=== PATIENT | male | born 1950 | race Caucasian/White ===

== ENCOUNTER 2017-02-01 02:28 | Emergency (ER) | payer OTHER ==
--- NOTE | 2017-02-01 03:04 | PDOC ---
History of Present Illness - General History Source: Patient Exam Limitations: No Limitations - History of Present Illness Initial Comments: 02/01/17 03:29 The patient is a 66 year old male with a significant PMH of kidney stones, osteoporosis, arthritis, chronic back pain, BPH and GERD who presents to the emergency department with left sided pain beginning at approximately 10pm today. The patient describes the pain as localized near the left ribs,which is aggravated by changing positions or leaning to the right. The patient believes that his left side pain is associated with an episode earlier today at noon, wherein he reports reaching into a deep freezer and feeling a muscle spasm on his left side. The patient took Meloxicam and 2 extra strength Tylenol with minimal relief. He reports his left sided pain is so severe that it prevented him from sleeping, prompting his visit. The patient denies any recent injuries or trauma. He denies any numbness, tingling, or weakness. The patient denies chest pain, shortness of breath, headache and dizziness. Denies fever, chills, nausea, vomit, diarrhea and constipation. Denies dysuria, frequency, urgency and hematuria. Allergies: NKDA Past surgical history: Ulcer removal. Angiogram. Social history: Everyday smoker. No reported alcohol or drug use. PCP: Dr. Hopper <Pavel Funez - Last Filed: 02/01/17 04:51> - General History Source: Patient <ScarletSaul - Last Filed: 02/05/17 20:03> - General Stated Complaint: SIDE PAIN Time Seen by Provider: 02/01/17 03:01 Past History <Pavel Funez - Last Filed: 02/01/17 04:51> - Past Medical History Anemia: No Cardiac Disorders: No CVA: No Diabetes: No GI Disorders: Yes (ULCERS) Disorders: No HTN: No Psychiatric Problems: Yes (depression) - Surgical History Abdominal Surgery: (ULCER) Appendectomy: Yes Cardiac Surgery: Yes (ANGIOGRAM) - Suicide/Smoking/Psychosocial Hx Smoking Status: No Smoking History: Current every day smoker Number of Cigarettes Smoked Daily: 20 Hx Alcohol Use: No Drug/Substance Use Hx: No Substance Use Type: None <Saul Valerio - Last Filed: 02/05/17 20:03> - Past Medical History Allergies/Adverse Reactions: Allergies Allergy/AdvReac Type Severity Reaction Status Date / Time No Known Drug Allergies Allergy Verified 01/29/15 14:14 clams Allergy Severe Vomiting Uncoded 01/29/15 14:14 Home Medications: Ambulatory Orders Clonazepam 1 tab PO TID 06/20/13 Pantoprazole Sodium 1 tab PO DAILY 06/20/13 Trazodone HCl [Desyrel -] 1 tab PO BID 06/20/13 Alendronate Sodium [Fosamax] 10 mg PO DAILY 10/07/13 Ranitidine [Zantac -] 150 mg PO DAILY 01/13/15 Tamsulosin HCl [Flomax] 0.4 mg PO DAILY 01/13/15 Acetaminophen [Tylenol] 325 mg PO Q6H #20 tablet 01/29/15 Ibuprofen [Motrin] 600 mg PO TID #30 tablet 02/01/17 Oxycodone HCl/Acetaminophen [Percocet 5-325 mg Tablet] 1 - 2 tab PO Q6H #20 tablet MDD 4 02/01/17 Review of Systems - Review of Systems Able to Perform ROS?: Yes Comments:: 02/01/17 03:29 CONSTITUTIONAL: Absent: fever, chills, diaphoresis, generalized weakness, malaise, loss of appetite HEENT: Absent: rhinorrhea, nasal congestion, throat pain, throat swelling, difficulty swallowing, mouth swelling, ear pain, eye pain, visual Changes CARDIOVASCULAR: Absent: chest pain, syncope, palpitations, irregular heart rate, lightheadedness , peripheral edema RESPIRATORY: Absent: cough, shortness of breath, dyspnea with exertion, orthopnea, wheezing, stridor, hemoptysis GASTROINTESTINAL: Absent: abdominal pain, abdominal distension, nausea, vomiting, diarrhea, constipation, melena, hematochezia GENITOURINARY: Absent: dysuria, frequency, urgency, hesitancy, hematuria, flank pain, genital pain MUSCULOSKELETAL: (+) Left sided pain near ribs. Absent: arthralgia, joint swelling SKIN: Absent: rash, itching, pallor HEMATOLOGIC/IMMUNOLOGIC: Absent: easy bleeding, easy bruising, lymphadenopathy, frequent infections ENDOCRINE: Absent: unexplained weight gain, unexplained weight loss, heat intolerance, cold intolerance NEUROLOGIC: Absent: headache, focal weakness or paresthesias, dizziness, unsteady gait, seizure, mental status changes, bladder or bowel incontinence PSYCHIATRIC: Absent: anxiety, depression, suicidal or homicidal ideation, hallucinations. <Pavel Funez - Last Filed: 02/01/17 04:51> *Physical Exam - Vital Signs Last Vital Signs Temp Pulse Resp BP Pulse Ox 97.9 F 73 18 121/67 98 02/01/17 03:07 02/01/17 03:07 02/01/17 03:07 02/01/17 03:07 02/01/17 03:07 - Physical Exam Comments: 02/01/17 03:29 GENERAL: Well developed, well nourished. Awake and alert. No acute distress. HEENT: Normocephalic, atraumatic. PERRLA, EOMI. No conjunctival pallor. Sclera are non- icteric. Moist mucous membranes. Oropharynx is clear. NECK: Supple. Full ROM. No JVD. Carotid pulses 2+ and symmetric, without bruits. No thyromegaly. No lymphadenopathy. CARDIOVASCULAR: Regular rate and rhythm. No murmurs, rubs, or gallops. Distal pulses are 2+ and symmetric. PULMONARY: No evidence of respiratory distress. Lungs clear to auscultation bilaterally. No wheezing, rales or rhonchi. ABDOMINAL: Soft. Non-tender. Non-distended. No rebound or guarding. No organomegaly. Normoactive bowel sounds. MUSCULOSKELETAL: (+) Tender to anterior lateral region of the left side ribcage (6-8) Normal range of motion at all joints. No bony deformities. No CVA tenderness. EXTREMITIES: No cyanosis. No clubbing. No edema. No calf tenderness. SKIN: Warm and dry. Normal capillary refill. No rashes. No jaundice. NEUROLOGICAL: Alert, awake, appropriate. Cranial nerves 2-12 intact. No deficits to light touch and temperature in face, upper extremities and lower extremities. No motor deficits in the in face, upper extremities and lower extremities. Normoreflexic in the upper and lower extremities. Normal speech. Toes are downgoing bilaterally. Gait is normal without ataxia. PSYCHIATRIC: Cooperative. Good eye contact. Appropriate mood and affect. <Pavel Funez - Last Filed: 02/01/17 04:51> Medical Decision Making - Medical Decision Making 02/01/17 05:28 Dr. Valerio: The scribe's documentation has been prepared under my direction and personally reviewed by me in its entirery. I confirm that the note above accurately reflects all work, treatment, procedures, and medical decision making performed by me. 02/05/17 20:02 CT scan of chest done. No acute pathology seen. Pt discharged. referred to internal medicine as needed <Saul Valerio - Last Filed: 02/05/17 20:03> *DC/Admit/Observation/Transfer - Attestations Scribe Attestion: 02/01/17 03:29 Documentation prepared by Pavel Funez, acting as director medical for Saul Valerio DO. <Pavel Funez - Last Filed: 02/01/17 04:51> - Discharge Dispostion Admit: No <Saul Valerio - Last Filed: 02/05/17 20:03> Diagnosis at time of Disposition: Rib pain on left side - Discharge Dispostion Disposition: HOME Condition at time of disposition: Stable - Prescriptions Prescriptions: Ibuprofen [Motrin] 600 mg PO TID #30 tablet Oxycodone HCl/Acetaminophen [Percocet 5-325 mg Tablet] 1 - 2 tab PO Q6H #20 tablet MDD 4 - Referrals Referrals: Mik Hopper MD [Primary Care Provider] - - Patient Instructions Printed Discharge Instructions: DI for Rib Contusion
[2017-02-01 03:10] VITALS: BP 121/67; PULSE 73; TEMP 97.9; BMI 18.8
[2017-02-01] MEDS ORDERED: KETOROLAC TROMETHAMINE 60 MG/2 ML VIAL IM ONE (03:25)
[2017-02-01] MEDS ORDERED: KETOROLAC TROMETHAMINE 60 MG/2 ML VIAL ONE (03:30)
== END 2017-02-01 05:32 | disposition home or self-care (01) ==
LOC: JER 02:28
PROC: 3E0233Z Introduction of Anti-inflammatory into Muscle, Percutaneous Approach (ICD-10-PCS; principal; 2017-02-01)
DX: R07.81 Pleurodynia (principal)
CPT/HCPCS: 71250-TC; 96372; 99281-25

== ENCOUNTER 2017-02-18 17:44 | Emergency (ER) | payer OTHER ==
--- NOTE | 2017-02-18 17:51 | PDOC ---
Rapid Medical Evaluation Chief Complaint: Pain Time Seen by Provider: 02/18/17 17:49 Medical Evaluation: Allergies Allergy/AdvReac Type Severity Reaction Status Date / Time No Known Drug Allergies Allergy Verified 02/18/17 17:45 clams Allergy Severe Vomiting Uncoded 02/18/17 17:45 02/18/17 17:49 I have performed a brief in-person evaluation of this patient. The Patient presents with a chief complaint of left rib pain x 2 days Patient seen one week ago for injury to ribs, diagnosed with no fracture. States lifted a package 2 days ago that exacerbated the pain in left rib area worse than before. Complaining of pain with deep breathing, movement and when area is touched. Denies shortness of breath Pertinent physical exam findings are: NAD unlabored breathing tenderness in left anterior and posterior trunk I have ordered the following: analgesia, xray ordered The patient will proceed to the ED for further evaluation.
[2017-02-18 17:52] VITALS: BP 148/85; PULSE 75; TEMP 98; BMI 19.8
--- NOTE | 2017-02-18 18:58 | PDOC ---
History of Present Illness - General Chief Complaint: Pain Stated Complaint: PAIN, ACUTE Time Seen by Provider: 02/18/17 17:49 History Source: Patient Exam Limitations: No Limitations - History of Present Illness Initial Comments: 02/18/17 19:37 Patient is a 66-year-old male with past medical history of osteoporosis with multiple fractures, who presents to the emergency department today complaining of left rib pain. Patient states he was helping his neighbor lift a box when he experienced a sudden pain on the left lateral side of his chest. He was seen last week for similar symptoms after he hit his ribs into a counter at a deli. He was diagnosed with a left non-displaced 6th rib fracture at that time. He was taking ibuprofen with little relief. He states it hurts to take a deep breath and hurts to move. Denies fevers, chills, nausea, cough, vomiting and diarrhea. Past History - Travel Traveled outside of the country in the last 30 days: No Close contact w/someone who was outside of country & ill: No - Past Medical History Allergies/Adverse Reactions: Allergies Allergy/AdvReac Type Severity Reaction Status Date / Time No Known Drug Allergies Allergy Verified 02/18/17 17:45 clams Allergy Severe Vomiting Uncoded 02/18/17 17:45 Home Medications: Ambulatory Orders Clonazepam 1 tab PO TID 06/20/13 Pantoprazole Sodium 1 tab PO DAILY 06/20/13 Trazodone HCl [Desyrel -] 1 tab PO BID 06/20/13 Alendronate Sodium [Fosamax] 10 mg PO DAILY 10/07/13 Ranitidine [Zantac -] 150 mg PO DAILY 01/13/15 Tamsulosin HCl [Flomax] 0.4 mg PO DAILY 01/13/15 Acetaminophen [Tylenol] 325 mg PO Q6H #20 tablet 01/29/15 Ibuprofen [Motrin] 600 mg PO TID #30 tablet 02/01/17 Oxycodone HCl/Acetaminophen [Percocet 5-325 mg Tablet] 1 - 2 tab PO Q6H #20 tablet MDD 4 02/01/17 Ibuprofen 800 mg PO TID #30 tablet 02/18/17 Oxycodone HCl/Acetaminophen [Endocet 5-325 Tablet] 1 each PO Q6H #12 tablet MDD 4 02/18/17 Spirometers and Accessories [Mistassist] 1 each MC Q2H #1 each 02/18/17 Anemia: No Cardiac Disorders: No CVA: No COPD: No Diabetes: No GI Disorders: Yes (ULCERS) Disorders: No HTN: No Psychiatric Problems: Yes (depression) Other medical history: op - Surgical History Abdominal Surgery: (ULCER) Appendectomy: Yes Cardiac Surgery: Yes (ANGIOGRAM) - Suicide/Smoking/Psychosocial Hx Smoking Status: No Smoking History: Current every day smoker Have you smoked in the past 12 months: Yes Number of Cigarettes Smoked Daily: 20 Information on smoking cessation initiated: Yes Hx Alcohol Use: No Drug/Substance Use Hx: No Substance Use Type: None Review of Systems - Review of Systems Able to Perform ROS?: Yes Comments:: 02/18/17 19:07 CONSTITUTIONAL: Absent: fever, chills, diaphoresis, generalized weakness, malaise, loss of appetite HEENT: Absent: rhinorrhea, nasal congestion, throat pain, throat swelling, difficulty swallowing, mouth swelling, ear pain, eye pain, visual Changes CARDIOVASCULAR: Present: L chest pain Absent: loss of consciousness, palpitations, irregular heart rate, peripheral edema RESPIRATORY: Absent: cough, shortness of breath, dyspnea with exertion, orthopnea, wheezing, stridor, hemoptysis GASTROINTESTINAL: Absent: abdominal pain, abdominal distension, nausea, vomiting, diarrhea, constipation, melena, hematochezia GENITOURINARY: Absent: dysuria, frequency, urgency, hesitancy, hematuria, flank pain, genital pain MUSCULOSKELETAL: Absent: myalgia, arthralgia, joint swelling SKIN: Absent: rash, itching, pallor HEMATOLOGIC/IMMUNOLOGIC: Absent: easy bleeding, easy bruising, lymphadenopathy, frequent infections ENDOCRINE: Absent: unexplained weight gain, unexplained weight loss, heat intolerance, cold intolerance NEUROLOGIC: Absent: headache, focal weakness or paresthesias, dizziness, unsteady gait, seizure, mental status changes, bladder or bowel incontinence PSYCHIATRIC: Absent: anxiety, depression, suicidal or homicidal ideation, hallucinations. 02/18/17 19:39 Is the patient limited Sami proficient: No *Physical Exam - Vital Signs Last Vital Signs Temp Pulse Resp BP Pulse Ox 98.0 F 75 18 148/85 100 02/18/17 17:48 02/18/17 17:48 02/18/17 17:48 02/18/17 17:48 02/18/17 17:48 - Physical Exam Comments: 02/18/17 19:07 GENERAL: Well developed, well nourished. Awake and alert. No acute distress. HEENT: Normocephalic, atraumatic. PERRLA, EOMI. No conjunctival pallor. Sclera are non- icteric. Moist mucous membranes. Oropharynx is clear. NECK: Supple. Full ROM. No JVD. Carotid pulses 2+ and symmetric, without bruits. No thyromegaly. No lymphadenopathy. CARDIOVASCULAR: TTP of the L ribs from 6th rib to 9th rib. Regular rate and rhythm. No murmurs, rubs, or gallops. Distal pulses are 2+ and symmetric. PULMONARY: No evidence of respiratory distress. Lungs clear to auscultation bilaterally. No wheezing, rales or rhonchi. ABDOMINAL: Soft. Non-tender. Non-distended. No rebound or guarding. No organomegaly. Normoactive bowel sounds. MUSCULOSKELETAL Normal range of motion at all joints. No bony deformities or tenderness. No CVA tenderness. EXTREMITIES: No cyanosis. No clubbing. No edema. No calf tenderness. SKIN: Warm and dry. Normal capillary refill. No rashes. No jaundice. NEUROLOGICAL: Alert, awake, appropriate. Cranial nerves 2-12 intact. No deficits to light touch and temperature in face, upper extremities and lower extremities. No motor deficits in the in face, upper extremities and lower extremities. Normoreflexic in the upper and lower extremities. Normal speech. Toes are down- going bilaterally. Gait is normal without ataxia. PSYCHIATRIC: Cooperative. Good eye contact. Appropriate mood and affect. Medical Decision Making - Medical Decision Making 02/18/17 19:39 Patient is a 66-year-old male past medical osteoporosis with multiple fractures , who presents to the emergency department today complaining of left rib pain. Given patient's history and diagnosis from last visit he most likely aggravated his previous rib fracture. However given to the degree of pain the patient is in we'll free order x-ray to rule out new fracture. 1.rib x-ray 2.pain control 3.reevaluate 02/18/17 20:44 EKG: Sinus bradycardia, rate 55bpm Non-specific t-wave flattening, normal intervals normal axis. No ST-T wave elevation Pt. feels better with oxycodone. X-ray: non-displaced fracture of the 9th rib. Will d.c home with pain control and incentive spirometer. Referral to ortho given *DC/Admit/Observation/Transfer Diagnosis at time of Disposition: Rib fractures Qualifiers: Encounter type: initial encounter Rib fracture type: multiple ribs Fracture type: closed Laterality: left Qualified Code(s): S22.42XA - Multiple fractures of ribs, left side, initial encounter for closed fracture - Discharge Dispostion Disposition: HOME Condition at time of disposition: Good Admit: No - Prescriptions Prescriptions: Ibuprofen 800 mg PO TID #30 tablet Oxycodone HCl/Acetaminophen [Endocet 5-325 Tablet] 1 each PO Q6H #12 tablet MDD 4 Spirometers and Accessories [Mistassist] 1 each MC Q2H #1 each - Referrals Referrals: Mik Hopper MD [Primary Care Provider] - David Xiao MD [Staff Physician] - - Patient Instructions Printed Discharge Instructions: DI for Rib Fracture Additional Instructions: You have a broken Left 9th and 6th rib. You were prescribed oxycodone. Take the medication as needed for breakthrough pain every [address] after taking this medication as it may make you sleepy. Take the ibuprofen every 800mg every 8 hours. Use the incentive spirometer every 2 hours to help with your breathing. Follow up with ortho as soon as possible. You may take robitussin for cough. Return to the ED if you have worsening pain, cough fevers, or any changes in your symptoms. - Post Discharge Activity
--- NOTE | 2017-02-19 13:50 | EKG ---
Test Reason : Blood Pressure : / mmHG Vent. Rate : 055 BPM Atrial Rate : 055 BPM P-R Int : 126 ms QRS Dur : 084 ms QT Int : 402 ms P-R-T Axes : 075 030 045 degrees QTc Int : 384 ms SINUS BRADYCARDIA BASELINE ARTIFACTS POSSIBLE LEFT ATRIAL ENLARGEMENT NONSPECIFIC T WAVE ABNORMALITY ABNORMAL ECG WHEN COMPARED WITH ECG OF 20-JUN-2013 11:03, NONSPECIFIC T WAVE ABNORMALITY NOW EVIDENT IN LATERAL LEADS REPEAT EKG IF CLINICALLY INDICATED Confirmed by ONEL ARROYO MD ([id number]) on 02/19/2017 1:50:25 PM Referred By: Confirmed By:ONEL ARROYO MD
== END 2017-02-18 21:00 | disposition home or self-care (01) ==
LOC: JERFT 17:44
DX: S22.42XA Multiple fractures of ribs, left side, initial encounter for closed fracture (principal); X50.0XXA Overexertion from strenuous movement or load, initial encounter; Y93.89 Activity, other specified; Y92.89 Other specified places as the place of occurrence of the external cause; Y99.8 Other external cause status; M81.0 Age-related osteoporosis without current pathological fracture
CPT/HCPCS: 71101-TC; 93005; 93010; 99281-25

== ENCOUNTER 2017-06-27 17:24 | Emergency (ER) | payer OTHER ==
[2017-06-27 17:30] VITALS: BP 133/68; PULSE 83; TEMP 98.1; BMI 18.2
--- NOTE | 2017-06-27 17:54 | PDOC ---
History of Present Illness - General History Source: Patient Exam Limitations: No Limitations - History of Present Illness Initial Comments: 06/27/17 18:24 The patient is a 66 year old male with a significant PMH of osteoporosis, depression, and anxiety who presents to the emergency department with dizziness that began approximately 2 weeks ago with associated weight loss and loss of appetite. The patient notes he was lying in bed when he experienced increased dizziness prompting him to come to the ER. The patient states he took care of his mother for the last 6 months of her life that was diagnosed with brain cancer. The patient reports he has been eating a slice of bread or muffin a day since his mother . The patient denies chest pain, shortness of breath, and headache. Denies fever, chills, nausea, vomit, diarrhea and constipation. Denies dysuria, frequency, urgency and hematuria. Allergies: Clams Past surgical history: None reported Social history: Smokes 1 PPD. No reported alcohol or drug use. PCP: Dr. Hopper ] <Kenia Nolan - Last Filed: 06/27/17 18:39> <Jenna Ramirez - Last Filed: 06/28/17 21:20> - General Chief Complaint: Lightheaded Stated Complaint: DIZZINESS Time Seen by Provider: 06/27/17 17:53 Past History <Kenia Nolan - Last Filed: 06/27/17 18:39> - Past Medical History Anemia: No Cardiac Disorders: No CVA: No COPD: No Diabetes: No GI Disorders: Yes (ULCERS) Disorders: No HTN: No Psychiatric Problems: Yes (depression) - Surgical History Abdominal Surgery: (ULCER) Appendectomy: Yes Cardiac Surgery: Yes (ANGIOGRAM) - Suicide/Smoking/Psychosocial Hx Smoking Status: No Smoking History: Current every day smoker Have you smoked in the past 12 months: Yes Number of Cigarettes Smoked Daily: 20 Information on smoking cessation initiated: No Hx Alcohol Use: No Drug/Substance Use Hx: No Substance Use Type: None <Jenna Ramirez - Last Filed: 06/28/17 21:20> - Past Medical History Allergies/Adverse Reactions: Allergies Allergy/AdvReac Type Severity Reaction Status Date / Time No Known Drug Allergies Allergy Verified 06/27/17 17:27 clams Allergy Severe Vomiting Uncoded 06/27/17 17:27 Home Medications: Ambulatory Orders Clonazepam 1 tab PO TID 06/20/13 Pantoprazole Sodium 1 tab PO DAILY 06/20/13 traZODone HCL [Desyrel -] 1 tab PO HS 06/20/13 Alendronate Sodium [Fosamax] 70 mg PO TU 10/07/13 Tamsulosin HCl [Flomax] 0.4 mg PO DAILY 01/13/15 Acetaminophen [Tylenol] 325 mg PO Q6H #20 tablet 01/29/15 Bupropion HCl [Wellbutrin Sr] 150 mg PO BID 06/27/17 Meloxicam [Mobic] 15 mg PO DAILY 06/27/17 Venlafaxine HCl [Effexor -] 75 mg PO DAILY 06/27/17 Review of Systems - Review of Systems Able to Perform ROS?: Yes Comments:: 06/27/17 18:39 GENERAL/CONSTITUTIONAL: No fever or chills. No weakness. HEAD, EYES, EARS, NOSE AND THROAT: No change in vision. No ear pain or discharge. No sore throat. CARDIOVASCULAR: No chest pain or shortness of breath. RESPIRATORY: No cough, wheezing, or hemoptysis. GASTROINTESTINAL: (+) Lack of appetite. No nausea, vomiting, diarrhea or constipation. GENITOURINARY: No dysuria, frequency, or change in urination. MUSCULOSKELETAL: No joint or muscle swelling or pain. No neck or back pain. SKIN: No rash NEUROLOGIC: (+) Dizziness. No headache, loss of consciousness, or change in strength/sensation. ENDOCRINE: (+) Weight loss. No increased thirst. HEMATOLOGIC/LYMPHATIC: No anemia, easy bleeding, or history of blood clots. ALLERGIC/IMMUNOLOGIC: No hives or skin allergy. <Kenia Nolan - Last Filed: 06/27/17 18:39> *Physical Exam - Vital Signs Last Vital Signs Temp Pulse Resp BP Pulse Ox 98.1 F 83 15 133/68 99 06/27/17 17:27 06/27/17 17:27 06/27/17 17:27 06/27/17 17:27 06/27/17 17:27 <Kenia Nolan - Last Filed: 06/27/17 18:39> - Vital Signs Last Vital Signs Temp Pulse Resp BP Pulse Ox 98.1 F 83 15 133/68 99 06/27/17 17:27 06/27/17 17:27 06/27/17 17:27 06/27/17 17:27 06/27/17 17:27 <Jenna Ramirez - Last Filed: 06/28/17 21:20> ED Treatment Course - LABORATORY CBC & Chemistry Diagram: 06/27/17 18:52 06/27/17 18:52 <Jenna Ramirez - Last Filed: 06/28/17 21:20> *DC/Admit/Observation/Transfer - Attestations Scribe Attestion: 06/27/17 18:40 Documentation prepared by Kenia Nolan, acting as medical assistant secretary for Jenna Ramirez MD. <Kenia Nolan - Last Filed: 06/27/17 18:39> <Jenna Ramirez - Last Filed: 06/28/17 21:20> Diagnosis at time of Disposition: Decrease in appetite - Discharge Dispostion Disposition: HOME Condition at time of disposition: Stable - Referrals Referrals: Mik Hopper MD [Primary Care Provider] - - Patient Instructions Printed Discharge Instructions: DI for Poor Appetite Additional Instructions: Please follow up with your primary care doctor to discuss how to increase your appetite - Post Discharge Activity
[2017-06-27 19:06] LABS: BASO % 0.4 % (0-2.0); EOS % 1.1 % (0-4.5); HEMATOCRIT 41.3 % (35.4-49); LYMPH % 13.9 % (8-40); MCH 32.5 pg (25.7-33.7); MEAN CELL VOLUME 95.6 fl (80-96); MEAN PLT VOLUME 8.6 fl (7.5-11.1); MONO % 8.2 % (3.8-10.2); NEUT % 76.4 % (42.8-82.8); PLATELET COUNT 198 K/MM3 (134-434); RBC 4.32 M/mm3 (4.00-5.60); RDW 13.3 % (11.9-15.9); WHITE BLOOD COUNT 10.3 K/mm3 (4.0-10.0)
[2017-06-27 19:37] LABS: ALBUMIN 3.5 g/dl (3.4-5.0); ANION GAP 1 (8-16); BILIRUBIN,TOTAL 0.2 mg/dL (0.2-1.0); BLOOD UREA NITROGEN 16 mg/dL (7-18); CALCIUM 9.1 mg/dL (8.5-10.1); CHLORIDE 107 mmol/L (98-107); CO2 35 mmol/L (21-32); CREATININE 1.3 mg/dL (0.7-1.3); GLUCOSE,RANDOM 95 mg/dL (74-106); POTASSIUM 4.2 mmol/L (3.5-5.1); SGOT/AST 10 U/L (15-37); SGPT/ALT 13 U/L (12-78); SODIUM 143 mmol/L (136-145)
[2017-06-27 19:38] LABS: ALK PHOS 88 U/L (45-117); TOT PROT 6.7 g/dl (6.4-8.2)
--- NOTE | 2017-06-27 20:24 | PDOC ---
*Physical Exam - Vital Signs Last Vital Signs Temp Pulse Resp BP Pulse Ox 98.1 F 83 15 133/68 99 06/27/17 17:27 06/27/17 17:27 06/27/17 17:27 06/27/17 17:27 06/27/17 17:27 ED Treatment Course - LABORATORY CBC & Chemistry Diagram: 06/27/17 18:52 06/27/17 18:52 - ADDITIONAL ORDERS Additional order review: Laboratory Results 06/27/17 18:52 Sodium 143 Potassium 4.2 Chloride 107 Carbon Dioxide 35 H Anion Gap 1 L BUN 16 D Creatinine 1.3 D Creat Clearance w eGFR 55.23 Random Glucose 95 D Calcium 9.1 Total Bilirubin 0.2 D AST 10 L D ALT 13 D Alkaline Phosphatase 88 D Total Protein 6.7 Albumin 3.5 06/27/17 18:52 RBC 4.32 MCV 95.6 MCHC 34.0 RDW 13.3 MPV 8.6 Neutrophils % 76.4 D Lymphocytes % 13.9 D Monocytes % 8.2 Eosinophils % 1.1 Basophils % 0.4 Medical Decision Making - Medical Decision Making 06/27/17 20:[address] scan of head are all stable. Pt will be discharged to follow up with his pcp for further discussion about how to improve his appetite *DC/Admit/Observation/Transfer Diagnosis at time of Disposition: Decrease in appetite - Discharge Dispostion Disposition: HOME Condition at time of disposition: Stable Admit: No - Referrals Referrals: Mik Hopper MD [Primary Care Provider] - - Patient Instructions Printed Discharge Instructions: DI for Poor Appetite Additional Instructions: Please follow up with your primary care doctor to discuss how to increase your appetite - Post Discharge Activity
== END 2017-06-27 20:24 | disposition home or self-care (01) ==
LOC: JER 17:24
DX: F50.89 Other specified eating disorder (principal); F32.9 Major depressive disorder, single episode, unspecified; F41.9 Anxiety disorder, unspecified; M19.90 Unspecified osteoarthritis, unspecified site; Z98.61 Coronary angioplasty status
CPT/HCPCS: 36415; 70450-TC; 80053; 85025; 99282-25

== ENCOUNTER 2017-09-03 16:59 | Emergency (ER) | payer OTHER ==
[2017-09-03 17:22] VITALS: BP 146/76; PULSE 100; TEMP 98.3; BMI 18.8
--- NOTE | 2017-09-03 17:23 | PDOC ---
Rapid Medical Evaluation Chief Complaint: Pain Time Seen by Provider: 09/03/17 17:19 Medical Evaluation: Allergies Allergy/AdvReac Type Severity Reaction Status Date / Time No Known Drug Allergies Allergy Verified 09/03/17 17:18 clams Allergy Severe Vomiting Uncoded 09/03/17 17:18 09/03/17 17:20 Pt. presents to the ED c/o dizziness for two months, worsening over the last week. Worse when moving side. Exam: No gross neuro deficits, ambulatory Orders: CBC, CMP, UA, head CT Pt. to proceed to main ED for further evaluation
[2017-09-03 20:11] LABS: BASO % 0.8 % (0-2.0); EOS % 0.4 % (0-4.5); HEMATOCRIT 43.8 % (35.4-49); HEMOGLOBIN 14.5 GM/dL (11.7-16.9); LYMPH % 19.3 % (8-40); MCH 31.1 pg (25.7-33.7); MCHC 33.1 g/dl (32.0-35.9); MEAN CELL VOLUME 93.9 fl (80-96); MEAN PLT VOLUME 8.3 fl (7.5-11.1); NEUT % 70.5 % (42.8-82.8); PLATELET COUNT 187 K/MM3 (134-434); RBC 4.66 M/mm3 (4.00-5.60); RDW 13.1 % (11.9-15.9); WHITE BLOOD COUNT 7.3 K/mm3 (4.0-10.0)
[2017-09-03 20:28] LABS: URINE APPEARANCE CLEAR; URINE BILIRUBIN NEGATIVE (<2.0 mg/dL); URINE COLOR YELLOW; URINE GLUCOSE (UA) NEGATIVE (NEGATIVE); URINE KETONE TRACE (NEGATIVE); URINE LEUK ESTERASE TRACE (NEGATIVE); URINE NITRITE NEGATIVE (NEGATIVE); URINE PROTEIN NEGATIVE (NEGATIVE)
[2017-09-03 20:31] LABS: URINE MUCUS RARE
[2017-09-03 20:49] LABS: ALBUMIN 3.8 g/dl (3.4-5.0); ANION GAP 5 (8-16); BILIRUBIN,TOTAL 0.7 mg/dL (0.2-1.0); BLOOD UREA NITROGEN 17 mg/dL (7-18); CALCIUM 8.6 mg/dL (8.5-10.1); CHLORIDE 108 mmol/L (98-107); CO2 27 mmol/L (21-32); CREATININE 1.2 mg/dL (0.7-1.3); GLUCOSE,RANDOM 85 mg/dL (74-106); POTASSIUM 3.8 mmol/L (3.5-5.1); SGOT/AST 16 U/L (15-37); SODIUM 140 mmol/L (136-145); TOT PROT 7.2 g/dl (6.4-8.2)
[2017-09-03 20:54] LABS: ALK PHOS 49 U/L (45-117); SGPT/ALT 15 U/L (12-78)
--- NOTE | 2017-09-03 22:58 | PDOC ---
History of Present Illness <TroyDorothy Lori - Last Filed: 09/03/17 23:20> - General History Source: Patient Exam Limitations: No Limitations - History of Present Illness Initial Comments: 09/03/17 23:24 The patient is a 67 year old male with past medical history of osteoporosis, depression and GERD who presents to the ED with multiple complaints. He states for the past two months he has been experiencing lightheadedness, decreased appetite, and weight loss. He states the lightheadedness is worse when he closes his eyes. He denies any associated focal neurological deficits, visual changes, room spinning dizziness, chest pain, or palpitations. He denies any headache. Denies any recent illness, fevers or chills. PCP: Dr. Hopper <Sujey Connors - Last Filed: 09/03/17 23:57> - General Chief Complaint: Pain Stated Complaint: FATIGUE Time Seen by Provider: 09/03/17 17:19 Past History - Past Medical History Anemia: No Cardiac Disorders: No CVA: No COPD: No DVT: No Diabetes: No GI Disorders: Yes (ULCERS) Disorders: No HTN: No Psychiatric Problems: Yes (depression) Other medical history: OP,BPH - Surgical History Abdominal Surgery: (ULCER) Appendectomy: Yes Cardiac Surgery: Yes (ANGIOGRAM) - Suicide/Smoking/Psychosocial Hx Smoking Status: No Smoking History: Current every day smoker Have you smoked in the past 12 months: Yes Number of Cigarettes Smoked Daily: 20 Information on smoking cessation initiated: Yes 'Breaking Loose' booklet given: 09/03/17 Hx Alcohol Use: No Drug/Substance Use Hx: No Substance Use Type: None <Dorothy Simmons - Last Filed: 09/03/17 23:20> <Sujey Connors - Last Filed: 09/03/17 23:57> - Past Medical History Allergies/Adverse Reactions: Allergies Allergy/AdvReac Type Severity Reaction Status Date / Time No Known Drug Allergies Allergy Verified 09/03/17 17:18 clams Allergy Severe Vomiting Uncoded 09/03/17 17:18 Home Medications: Ambulatory Orders Clonazepam 1 tab PO TID 06/20/13 Pantoprazole Sodium 1 tab PO DAILY 06/20/13 traZODone HCL [Desyrel -] 1 tab PO HS 06/20/13 Alendronate Sodium [Fosamax] 70 mg PO TU 10/07/13 Tamsulosin HCl [Flomax] 0.4 mg PO DAILY 01/13/15 Acetaminophen [Tylenol] 325 mg PO Q6H #20 tablet 01/29/15 Bupropion HCl [Wellbutrin Sr] 150 mg PO BID 06/27/17 Meloxicam [Mobic] 15 mg PO DAILY 06/27/17 Venlafaxine HCl [Effexor -] 75 mg PO DAILY 06/27/17 Review of Systems - Review of Systems Able to Perform ROS?: Yes Comments:: 09/03/17 23:28 CONSTITUTIONAL:(+) loss of appetite, weight loss Absent: fever, chills, diaphoresis, generalized weakness, malaise HEENT: Absent: rhinorrhea, nasal congestion, throat pain, throat swelling, difficulty swallowing, mouth swelling, ear pain, eye pain, visual Changes CARDIOVASCULAR: (+) lightheadedness Absent: chest pain, syncope, palpitations, irregular heart rate, peripheral edema RESPIRATORY: Absent: cough, shortness of breath, dyspnea with exertion, orthopnea, wheezing, stridor, hemoptysis GASTROINTESTINAL: Absent: abdominal pain, abdominal distension, nausea, vomiting, diarrhea, constipation, melena, hematochezia GENITOURINARY: Absent: dysuria, frequency, urgency, hesitancy, hematuria, flank pain, genital pain MUSCULOSKELETAL: Absent: myalgia, arthralgia, joint swelling SKIN: Absent: rash, itching, pallor HEMATOLOGIC/IMMUNOLOGIC: Absent: easy bleeding, easy bruising, lymphadenopathy, frequent infections ENDOCRINE: Absent: unexplained weight gain, heat intolerance, cold intolerance NEUROLOGIC: Absent: headache, focal weakness or paresthesias, dizziness, unsteady gait, seizure, mental status changes, bladder or bowel incontinence PSYCHIATRIC: Absent: anxiety, depression, suicidal or homicidal ideation, hallucinations. All Other Systems: Reviewed and Negative <Sujey Connors - Last Filed: 09/03/17 23:57> *Physical Exam - Vital Signs Last Vital Signs Temp Pulse Resp BP Pulse Ox 98.3 F 100 H 20 146/76 100 09/03/17 17:18 09/03/17 17:18 09/03/17 17:18 09/03/17 17:18 09/03/17 17:18 <Dorothy Simmons - Last Filed: 09/03/17 23:20> - Vital Signs Last Vital Signs Temp Pulse Resp BP Pulse Ox 98.3 F 100 H 20 146/76 100 09/03/17 17:18 09/03/17 17:18 09/03/17 17:18 09/03/17 17:18 09/03/17 17:18 - Physical Exam Comments: 09/03/17 23:31 GENERAL: Thin, chachectic. Awake and alert. No acute distress. HEENT: Normocephalic, atraumatic. PERRLA, EOMI. No conjunctival pallor. Sclera are non- icteric. Moist mucous membranes. Oropharynx is clear. NECK: Supple. Full ROM. No JVD. Carotid pulses 2+ and symmetric, without bruits. No thyromegaly. No lymphadenopathy. CARDIOVASCULAR: Regular rate and rhythm. No murmurs, rubs, or gallops. Distal pulses are 2+ and symmetric. PULMONARY: No evidence of respiratory distress. Lungs clear to auscultation bilaterally. No wheezing, rales or rhonchi. ABDOMINAL: Soft. Non-tender. Non-distended. No rebound or guarding. No organomegaly. Normoactive bowel sounds. MUSCULOSKELETAL Normal range of motion at all joints. No bony deformities or tenderness. No CVA tenderness. EXTREMITIES: No cyanosis. No clubbing. No edema. No calf tenderness. SKIN: Warm and dry. Normal capillary refill. No rashes. No jaundice. NEUROLOGICAL: Alert, awake, appropriate. Cranial nerves 2-12 intact. No deficits to light touch and temperature in face, upper extremities and lower extremities. No motor deficits in the in face, upper extremities and lower extremities. Normoreflexic in the upper and lower extremities. Normal speech. Toes are down-going bilaterally. Gait is normal without ataxia. PSYCHIATRIC: Cooperative. Good eye contact. Appropriate mood and affect. <Sujey Connors - Last Filed: 09/03/17 23:57> ED Treatment Course - LABORATORY CBC & Chemistry Diagram: 09/03/17 17:26 09/03/17 17:26 - ADDITIONAL ORDERS Additional order review: Laboratory Results 09/03/17 09/03/17 20:05 17:26 Sodium 140 Potassium 3.8 Chloride 108 H Carbon Dioxide 27 D Anion Gap 5 L BUN 17 Creatinine 1.2 Creat Clearance w eGFR > 60 Random Glucose 85 Calcium 8.6 Total Bilirubin 0.7 D AST 16 D ALT 15 Alkaline Phosphatase 49 D Total Protein 7.2 Albumin 3.8 Urine Color Yellow Urine Appearance Clear Urine pH 6.0 Ur Specific [place] 1.019 Urine Protein Negative Urine Glucose (UA) Negative Urine Ketones Trace H Urine Blood Negative Urine Nitrite Negative Urine Bilirubin Negative Urine Urobilinogen 2.0 Ur Leukocyte Esterase Trace Urine WBC (Auto) 7 Urine RBC (Auto) 2 Urine Mucus Rare 09/03/17 17:26 RBC 4.66 MCV 93.9 MCHC 33.1 RDW 13.1 MPV 8.3 Neutrophils % 70.5 Lymphocytes % 19.3 D Monocytes % 9.0 Eosinophils % 0.4 Basophils % 0.8 <Dorothy Simmons - Last Filed: 09/03/17 23:20> - LABORATORY CBC & Chemistry Diagram: 09/03/17 17:26 09/03/17 17:26 - ADDITIONAL ORDERS Additional order review: Laboratory Results 09/03/17 09/03/17 20:05 17:26 Sodium 140 Potassium 3.8 Chloride 108 H Carbon Dioxide 27 D Anion Gap 5 L BUN 17 Creatinine 1.2 Creat Clearance w eGFR > 60 Random Glucose 85 Calcium 8.6 Total Bilirubin 0.7 D AST 16 D ALT 15 Alkaline Phosphatase 49 D Total Protein 7.2 Albumin 3.8 Urine Color Yellow Urine Appearance Clear Urine pH 6.0 Ur Specific [place] 1.019 Urine Protein Negative Urine Glucose (UA) Negative Urine Ketones Trace H Urine Blood Negative Urine Nitrite Negative Urine Bilirubin Negative Urine Urobilinogen 2.0 Ur Leukocyte Esterase Trace Urine WBC (Auto) 7 Urine RBC (Auto) 2 Urine Mucus Rare 09/03/17 17:26 RBC 4.66 MCV 93.9 MCHC 33.1 RDW 13.1 MPV 8.3 Neutrophils % 70.5 Lymphocytes % 19.3 D Monocytes % 9.0 Eosinophils % 0.4 Basophils % 0.8 - RADIOLOGY Radiograph Interpretation: 09/03/17 23:[address] as reviewed by Dr. Franco reports no interval change from prior exam <Sujey Connors - Last Filed: 09/03/17 23:57> *DC/Admit/Observation/Transfer <Dorothy Simmons - Last Filed: 09/03/17 23:20> - Attestations Scribe Attestion: 09/03/17 23:31 Documentation prepared by Sujey Connors, acting as emergency medical dispatcher for Dorothy Simmons MD. <Sujey Connors - Last Filed: 09/03/17 23:57> Diagnosis at time of Disposition: Decrease in appetite, Dizziness - Discharge Dispostion Condition at time of disposition: Stable - Referrals Referrals: Mik Hopper MD [Staff Physician] - Thierry Negron MD [Staff Physician] - - Patient Instructions Printed Discharge Instructions: DI for Dizziness-Nonvertigo Additional Instructions: IT IS IMPORTANT FOR YOU TO SEE YOUR DOCTOR FOR YOUR COMPLAINTS THE CT SCAN OF YOUR BRAIN DID NOT SHOW ANY ACUTE PROBLEMS PLEASE FOLLOWUP WITH A NEUROLOGIST
== END 2017-09-04 00:04 | disposition home or self-care (01) ==
LOC: JER 16:59
DX: R42 Dizziness and giddiness (principal); R63.4 Abnormal weight loss; Z68.1 Body mass index [BMI] 19.9 or less, adult; K21.9 Gastro-esophageal reflux disease without esophagitis; F32.9 Major depressive disorder, single episode, unspecified; F17.210 Nicotine dependence, cigarettes, uncomplicated; M81.8 Other osteoporosis without current pathological fracture
CPT/HCPCS: 36415; 70450-TC; 80053; 81003; 81015; 85025; 99281-25

== ENCOUNTER 2017-09-05 14:29 | Emergency (ER) | payer OTHER ==
--- NOTE | 2017-09-05 14:35 | PDOC ---
Rapid Medical Evaluation Time Seen by Provider: 09/05/17 14:32 Medical Evaluation: Allergies Allergy/AdvReac Type Severity Reaction Status Date / Time No Known Drug Allergies Allergy Verified 09/03/17 17:18 clams Allergy Severe Vomiting Uncoded 09/03/17 17:18 I have performed a brief in-person evaluation of this patient. The patient presents with a chief complaint of: nausea, vomiting and weakness x 5 days. Was here saturday for same Pertinent physical exam findings: nothing I have ordered the following: cbc, cmp, UA The patient will proceed to the ED for further evaluation. Discharge Disposition - Diagnosis Vomiting - Referrals - Patient Instructions - Post Discharge Activity
[2017-09-05 14:36] VITALS: BP 158/88; PULSE 98; TEMP 98.7; BMI 18.8
--- NOTE | 2017-09-05 15:20 | PDOC ---
Attending Attestation - Resident Resident Name: Kiran Garcia - HPI HPI: 09/05/17 16:36 Pt presents to the ED complaining of an 8 day history of nausea, vomiting and lightheadness. States that he was seen in the ED recently for the same complaint and was sent home when labs and CT were negative. Denies abdominal pain. States that he has been unable to eat secondary to severely decreased appetite and nausea. Also stating that his son is sick with the same symptoms. Patient states that he is unable to walk, although he has been observed by me to be ambulatory with a steady gait. 09/05/17 16:43 - Physicial Exam PE: 09/05/17 16:42 agree with resident exam. Patient is alert and in no acute distress. Ambulatory in the ED with a steady gait. Abdomen is mildly tender to to deep palpation diffusely. 09/05/17 16:43 - Medical Decision Making 09/05/17 16:44 Pt presents to the ED complaining of lightheadness, nausea and vomiting. REcent negative work up. WIll check labs to rule out electrolyte disturbance and give IV hydration. Will treat nausea with IV zofran. Will likely discharge home if labs are negative.
[2017-09-05 15:30] LABS: BASO % 0.4 % (0-2.0); EOS % 0.2 % (0-4.5); HEMATOCRIT 44.4 % (35.4-49); HEMOGLOBIN 14.8 GM/dL (11.7-16.9); LYMPH % 14.8 % (8-40); MCH 30.9 pg (25.7-33.7); MCHC 33.3 g/dl (32.0-35.9); MEAN CELL VOLUME 92.9 fl (80-96); MEAN PLT VOLUME 8.7 fl (7.5-11.1); MONO % 8.1 % (3.8-10.2); NEUT % 76.5 % (42.8-82.8); PLATELET COUNT 168 K/MM3 (134-434); RBC 4.78 M/mm3 (4.00-5.60)
--- NOTE | 2017-09-05 15:49 | PDOC ---
History of Present Illness - General Chief Complaint: Nausea/Vomiting Stated Complaint: WEAKNESS Time Seen by Provider: 09/05/17 14:32 - History of Present Illness Initial Comments: 09/05/17 16:22 Mr. Mahoney is a 67 yo male w/ pmh of osteoporosis, depression, and GERD who presents for evaluation of 4-5 day history of nausea with anorexia and relative weakness. He reports his son has also had similar symptoms. He ate some food last night and was able to keep it down however he had some dry gagging. The patient denies chest pain, shortness of breath, headache and dizziness. Denies fever, chills, nausea, vomit, diarrhea and constipation. Denies dysuria, frequency, urgency and hematuria. Allergies: NKDA Past History - Past Medical History Allergies/Adverse Reactions: Allergies Allergy/AdvReac Type Severity Reaction Status Date / Time No Known Drug Allergies Allergy Verified 09/05/17 14:32 clams Allergy Severe Vomiting Uncoded 09/05/17 14:32 Home Medications: Ambulatory Orders Clonazepam 1 tab PO TID 06/20/13 Pantoprazole Sodium 1 tab PO DAILY 06/20/13 traZODone HCL [Desyrel -] 1 tab PO HS 06/20/13 Alendronate Sodium [Fosamax] 70 mg PO TU 10/07/13 Tamsulosin HCl [Flomax] 0.4 mg PO DAILY 01/13/15 Acetaminophen [Tylenol] 325 mg PO Q6H #20 tablet 01/29/15 Bupropion HCl [Wellbutrin Sr] 150 mg PO BID 06/27/17 Meloxicam [Mobic] 15 mg PO DAILY 06/27/17 Venlafaxine HCl [Effexor -] 75 mg PO DAILY 06/27/17 Anemia: No Cardiac Disorders: No CVA: No COPD: No DVT: No Diabetes: No GI Disorders: Yes (ULCERS) Disorders: No HTN: No Psychiatric Problems: Yes (depression) Other medical history: OP - Surgical History Abdominal Surgery: (ULCER) Appendectomy: Yes Cardiac Surgery: Yes (ANGIOGRAM NO STENTS) - Suicide/Smoking/Psychosocial Hx Smoking Status: No Smoking History: Current every day smoker Have you smoked in the past 12 months: Yes Number of Cigarettes Smoked Daily: 20 Information on smoking cessation initiated: Yes 'Breaking Loose' booklet given: 09/05/17 Hx Alcohol Use: No Drug/Substance Use Hx: No Substance Use Type: None Review of Systems - Review of Systems Comments:: 09/05/17 16:22 GENERAL/CONSTITUTIONAL: +Generalized weakness. No fever or chills. HEAD, EYES, EARS, NOSE AND THROAT: No change in vision. No ear pain or discharge. No sore throat. CARDIOVASCULAR: No chest pain or shortness of breath RESPIRATORY: No cough, wheezing, or hemoptysis. GASTROINTESTINAL: +Intermittent nausea, no vomiting, diarrhea or constipation. GENITOURINARY: No dysuria, frequency, or change in urination. MUSCULOSKELETAL: No joint or muscle swelling or pain. No neck or back pain. SKIN: No rash NEUROLOGIC: No headache, vertigo, loss of consciousness, or change in strength/ sensation. ENDOCRINE: No increased thirst. No abnormal weight change HEMATOLOGIC/LYMPHATIC: No anemia, easy bleeding, or history of blood clots. ALLERGIC/IMMUNOLOGIC: No hives or skin allergy. *Physical Exam - Vital Signs Last Vital Signs Temp Pulse Resp BP Pulse Ox 98.7 F 98 H 18 158/88 98 09/05/17 14:32 09/05/17 14:32 09/05/17 14:32 09/05/17 14:32 09/05/17 14:32 - Physical Exam Comments: 09/05/17 16:23 GENERAL: Awake, alert, and fully oriented, in no acute distress HEAD: No signs of trauma, normocephalic, atraumatic EYES: PERRLA, EOMI, sclera anicteric, conjunctiva clear ENT: Auricles normal inspection, hearing grossly normal, nares patent, oropharynx clear without exudates. Moist mucosa NECK: Normal ROM, supple, no lymphadenopathy, JVD, or masses LUNGS: No distress, speaks full sentences, clear to auscultation bilaterally HEART: Regular rate and rhythm, normal S1 and S2, no murmurs, rubs or gallops, peripheral pulses normal and equal bilaterally. ABDOMEN: Soft, nontender, normoactive bowel sounds. No guarding, no rebound. No masses EXTREMITIES: Normal inspection, Normal range of motion, no edema. No clubbing or cyanosis. NEUROLOGICAL: Cranial nerves II through XII grossly intact. Normal speech, normal gait, no focal sensorimotor deficits SKIN: Warm, Dry, normal turgor, no rashes or lesions noted. ED Treatment Course - LABORATORY CBC & Chemistry Diagram: 09/05/17 15:11 09/05/17 15:11 - ADDITIONAL ORDERS Additional order review: 09/05/17 15:11 RBC 4.78 MCV 92.9 MCHC 33.3 RDW 13.0 MPV 8.7 Neutrophils % 76.5 Lymphocytes % 14.8 D Monocytes % 8.1 Eosinophils % 0.2 Basophils % 0.4 Medical Decision Making - Medical Decision Making 09/05/17 17:15 Mr. Mahoney is a 67 yo male w/ pmh as described who presents for generalized symptoms of nausea/vomiting he shares with his son. Labs grossly unconcerning as below. No concern for acute process at this time. Believe origin of symptoms to be viral in nature. Discharging patient to home w/ instructions to f/u with PCP for further evaluation. Laboratory Results - last 24 hr 09/05/17 09/05/17 15:11 15:11 WBC 6.0 RBC 4.78 Hgb 14.8 Hct 44.4 MCV 92.9 MCH 30.9 MCHC 33.3 RDW 13.0 Plt Count 168 MPV 8.7 Neutrophils % 76.5 Lymphocytes % 14.8 D Monocytes % 8.1 Eosinophils % 0.2 Basophils % 0.4 Nucleated RBC % 0 Sodium 140 Potassium 3.7 Chloride 106 Carbon Dioxide 28 Anion Gap 6 L BUN 22 H D Creatinine 1.1 Creat Clearance w eGFR > 60 Random Glucose 101 Calcium 9.3 Total Bilirubin 0.5 D AST 17 ALT 19 D Alkaline Phosphatase 51 Total Protein 7.2 Albumin 3.9 *DC/Admit/Observation/Transfer Diagnosis at time of Disposition: Vomiting Qualifiers: Vomiting type: unspecified Vomiting Intractability: non-intractable Nausea presence: with nausea Qualified Code(s): R11.2 - Nausea with vomiting, unspecified - Discharge Dispostion Disposition: HOME - Referrals Referrals: Mik Hopper MD [Primary Care Provider] - - Patient Instructions Printed Discharge Instructions: DI for Vomiting -- Adult Additional Instructions: Please follow-up with primary care provider for further evaluation. Return to ER if any increase in pain, fever, chills, or other concerning symptoms. - Post Discharge Activity
[2017-09-05 15:51] LABS: ALBUMIN 3.9 g/dl (3.4-5.0); ALK PHOS 51 U/L (45-117); ANION GAP 6 (8-16); BILIRUBIN,TOTAL 0.5 mg/dL (0.2-1.0); BLOOD UREA NITROGEN 22 mg/dL (7-18); CALCIUM 9.3 mg/dL (8.5-10.1); CHLORIDE 106 mmol/L (98-107); CO2 28 mmol/L (21-32); CREATININE 1.1 mg/dL (0.7-1.3); GLUCOSE,RANDOM 101 mg/dL (74-106); POTASSIUM 3.7 mmol/L (3.5-5.1); SGOT/AST 17 U/L (15-37); SGPT/ALT 19 U/L (12-78); SODIUM 140 mmol/L (136-145); TOT PROT 7.2 g/dl (6.4-8.2)
[2017-09-05] MEDS ORDERED: ACETAMINOPHEN 1000 MG/100 ML VIAL (NON FORMULARY) IVPB ONE (16:00)
[2017-09-05] MEDS ORDERED: ONDANSETRON 4 MG/2 ML VIAL IVPUSH ONE (16:00)
[2017-09-05] MEDS ORDERED: SODIUM CHLORIDE 1,000 ML IV STA (16:00)
[2017-09-05 17:57] LABS: URINE APPEARANCE CLEAR; URINE BILIRUBIN NEGATIVE (<2.0 mg/dL); URINE COLOR YELLOW; URINE GLUCOSE (UA) NEGATIVE (NEGATIVE); URINE KETONE TRACE (NEGATIVE); URINE LEUK ESTERASE TRACE (NEGATIVE); URINE NITRITE NEGATIVE (NEGATIVE)
[2017-09-05 18:01] LABS: URINE PROTEIN 1+ (NEGATIVE)
[2017-09-05 18:13] LABS: URINE BACTERIA RARE /hpf (NONE SEEN); URINE MUCUS RARE
== END 2017-09-05 18:59 | disposition home or self-care (01) ==
LOC: JER 14:29
PROC: 3E033NZ Introduction of Analgesics, Hypnotics, Sedatives into Peripheral Vein, Percutaneous Approach (ICD-10-PCS; principal; 2017-09-05)
PROC: 3E033GC Introduction of Other Therapeutic Substance into Peripheral Vein, Percutaneous Approach (ICD-10-PCS; 2017-09-05)
DX: R11.10 Vomiting, unspecified (principal); F32.9 Major depressive disorder, single episode, unspecified; M81.0 Age-related osteoporosis without current pathological fracture; Z87.19 Personal history of other diseases of the digestive system
CPT/HCPCS: 36415; 80053; 81003; 81015; 85025; 99282-25; J0131; J7030

== ENCOUNTER 2018-09-12 07:39 | Emergency (ER) | payer OTHER ==
[2018-09-12 07:51] VITALS: BP 133/67; PULSE 66; TEMP 97.6; BMI 19.5
[2018-09-12] MEDS ORDERED: CYCLOBENZAPRINE HCL 10 MG TABLET (FP) PO ONE (08:12)
[2018-09-12] MEDS ORDERED: KETOROLAC TROMETHAMINE 60 MG/2 ML VIAL IM ONE (08:12)
[2018-09-12] MEDS ORDERED: KETOROLAC TROMETHAMINE 30 MG/1 ML VIAL ONE (08:28)
[2018-09-12] MEDS ORDERED: CYCLOBENZAPRINE HCL 10 MG TABLET (FP) ONE (08:28)
--- NOTE | 2018-09-12 08:51 | PDOC ---
History of Present Illness - General Chief Complaint: Chronic pain Stated Complaint: GENERALIZED PAIN Time Seen by Provider: 09/12/18 08:04 History Source: Patient Exam Limitations: No Limitations - History of Present Illness Initial Comments: 09/12/18 09:03 68-year-old male with history of osteoporosis presents to ED with complaints of pain to his left elbow for the past few weeks worsened with movement. Patient states did thing and on the counter and unsure if he has fracture due to history of frequent fractures. Patient also complaining of right trapezius pain worsened with movement and of "clicking" in his neck for the past 3 months. Patient states has taken nothing for the pain and has not seek medical treatment for the above. Occurred: reports: just prior to arrival Severity: reports: mild Pain Location: reports: neck, upper extremity Method of Injury: Yes: other Modifying Factors: improves with: None Loss of Consciousness: no loss of consciousness Associated Symptoms (Fall): neck pain Past History - Travel Traveled outside of the country in the last 30 days: No Close contact w/someone who was outside of country & ill: No - Past Medical History Allergies/Adverse Reactions: Allergies Allergy/AdvReac Type Severity Reaction Status Date / Time No Known Drug Allergies Allergy Verified 09/12/18 07:41 clams Allergy Severe Vomiting Uncoded 09/12/18 07:41 Home Medications: Ambulatory Orders Clonazepam 1 tab PO TID 06/20/13 Pantoprazole Sodium 1 tab PO DAILY 06/20/13 Alendronate Sodium [Fosamax] 70 mg PO TU 10/07/13 Tamsulosin HCl [Flomax] 0.4 mg PO DAILY 01/13/15 Acetaminophen [Tylenol] 325 mg PO Q6H #20 tablet 01/29/15 Meloxicam [Mobic] 15 mg PO DAILY 06/27/17 Venlafaxine HCl [Effexor -] 75 mg PO DAILY 06/27/17 Calcium Carbonate/Vitamin D3 [Calcium 500 + Vit D Caplet] 1 each PO BID Cyclobenzaprine HCl [Flexeril -] 5 mg PO TID PRN #12 tablet 09/12/18 Ranitidine [Zantac -] 150 mg PO HS 09/12/18 Anemia: No Cardiac Disorders: No CVA: No COPD: No DVT: No Diabetes: No GI Disorders: Yes (ULCERS) Disorders: No HTN: No Psychiatric Problems: Yes (depression) - Surgical History Abdominal Surgery: (ULCER) Appendectomy: Yes Cardiac Surgery: Yes (ANGIOGRAM NO STENTS) - Suicide/Smoking/Psychosocial Hx Smoking Status: No Smoking History: Current every day smoker Have you smoked in the past 12 months: Yes Number of Cigarettes Smoked Daily: 20 Information on smoking cessation initiated: No 'Breaking Loose' booklet given: 09/05/17 Hx Alcohol Use: No Drug/Substance Use Hx: No Substance Use Type: None Patient Lives Alone: Yes Lives with/in: lives alone Trauma Specific PMHX - Complaint Specific PMHX Arthritis: No Review of Systems - Review of Systems Able to Perform ROS?: Yes Constitutional: No: Symptoms Reported HEENTM: No: Symptoms Reported Respiratory: No: Symptoms reported Cardiac (ROS): No: Symptoms Reported ABD/GI: No: Symptoms Reported Musculoskeletal: Yes: Joint Pain, Neck Pain Integumentary: No: Symptoms Reported Neurological: No: Symptoms reported *Physical Exam - Vital Signs Last Vital Signs Temp Pulse Resp BP Pulse Ox 97.6 F 66 18 133/67 99 09/12/18 07:41 09/12/18 07:41 09/12/18 07:41 09/12/18 07:41 09/12/18 07:41 - Physical Exam General Appearance: Yes: Nourished, Appropriately Dressed. No: Apparent Distress HEENT: negative: Pale Conjunctivae Neck: positive: Supple, Tender lateral (right upper trapezius). negative: Decreased range of motion, Tender midline, Other (no crepitus noted with movement) Respiratory/Chest: positive: Lungs Clear, Normal Breath Sounds. negative: Chest Tender, Respiratory Distress, Accessory Muscle Use Cardiovascular: positive: Regular Rhythm, Regular Rate. negative: Murmur Extremity: positive: Normal Capillary Refill, Normal Inspection, Normal Range of Motion (tenderness noted over the epicondyles). negative: Swelling, Other ( no crepitus no deformity) Integumentary: positive: Normal Color, Warm, Moist Neurologic: positive: Motor Strength 5/5 ED Treatment Course - RADIOLOGY Radiology Studies Ordered: Category Date Time Status ELBOW-LEFT [RAD] Stat Radiology 09/12/18 08:11 Ordered SPINE-CERVICAL [RAD] Stat Radiology 09/12/18 08:11 Ordered - Medications Given in the ED: ED Medications Discontinued Medications Generic Name Dose Route Start Last Admin Trade Name Freq PRN Reason Stop Dose Admin Cyclobenzaprine HCl 5 mg 09/12/18 08:12 09/12/18 08:39 Flexeril - PO 09/12/18 08:13 5 mg ONCE ONE Administration Ketorolac Tromethamine 30 mg 09/12/18 08:12 09/12/18 08:39 Toradol Injection - IM 09/12/18 08:13 30 mg ONCE ONE Administration Medical Decision Making - Medical Decision Making 09/12/18 09:06 Chief complaint: Right upper neck and left elbow pain no meds or follow-up since onset. Exam: Tenderness over the left epicondyles without deformity or crepitus noted to the joint Right upper trapezius tenderness without cervical tenderness. Plan: Secondary to osteoporosis patient was ordered for a left elbow and cervical x-ray along with Toradol IM and Flexeril 09/12/18 09:48 Left elbow x-ray negative for acute pathology. Cervical x-ray shows degenerative changes without blastic or lytic lesions. Mild subluxation noted to C5-C6. Discharge home with supportive care instructions along with Flexeril Rx *DC/Admit/Observation/Transfer Diagnosis at time of Disposition: Left elbow pain, Strain of right trapezius muscle - Discharge Dispostion Disposition: HOME Condition at time of disposition: Good - Prescriptions Prescriptions: Cyclobenzaprine HCl [Flexeril -] 5 mg PO TID PRN #12 tablet PRN Reason: Back Pain - Referrals Referrals: Mik Hopper MD [Primary Care Provider] - - Patient Instructions Printed Discharge Instructions: DI for Muscle Strain, DI for Elbow Pain Additional Instructions: Please apply heating pad to areas to alleviate pain. Take medication such as motrin or tylenol for pain. Take flexeril as prescribed - Post Discharge Activity
== END 2018-09-12 09:05 | disposition home or self-care (01) ==
LOC: JER 07:39
PROC: 3E0233Z Introduction of Anti-inflammatory into Muscle, Percutaneous Approach (ICD-10-PCS; principal; 2018-09-12)
DX: S46.811A Strain of other muscles, fascia and tendons at shoulder and upper arm level, right arm, initial encounter (principal); G89.29 Other chronic pain; F17.210 Nicotine dependence, cigarettes, uncomplicated; F32.9 Major depressive disorder, single episode, unspecified; X58.XXXA Exposure to other specified factors, initial encounter; Y93.89 Activity, other specified; Y92.89 Other specified places as the place of occurrence of the external cause
CPT/HCPCS: 72050-TC-FY; 73070-TC-LT-FY; 96372; 99281-25

== ENCOUNTER 2019-01-02 08:22 | Emergency (ER) | payer OTHER ==
[2019-01-02 08:27] VITALS: BP 140/85; PULSE 85; TEMP 98.1
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
== END 2019-01-02 10:53 | disposition home or self-care (01) ==
LOC: JER 08:22 → JERFT 08:22
DX: S09.92XA Unspecified injury of nose, initial encounter (principal); Y04.2XXA Assault by strike against or bumped into by another person, initial encounter; Y93.89 Activity, other specified; Y92.89 Other specified places as the place of occurrence of the external cause; Y99.8 Other external cause status; Y07.9 Unspecified perpetrator of maltreatment and neglect; M12.9 Arthropathy, unspecified; F32.9 Major depressive disorder, single episode, unspecified; Z98.61 Coronary angioplasty status; Z87.19 Personal history of other diseases of the digestive system; Z91.013 Allergy to seafood
CPT/HCPCS: 70450-TC; 99281-25

== ENCOUNTER 2021-07-17 16:50 | Emergency (ER) | payer BC ==
[2021-07-17 17:01] VITALS: BP 156/90; PULSE 102; TEMP 98.6; BMI 21.1
[2021-07-17 19:44] LABS: BASO % 0.4 % (0-2.0); EOS % 0.2 % (0-4.5); HEMATOCRIT 48.3 % (35.4-49); HEMOGLOBIN 16.6 GM/dL (11.7-16.9); LYMPH % 16.3 % (8-40); MCH 31.8 pg (25.7-33.7); MCHC 34.4 g/dl (32.0-35.9); MEAN CELL VOLUME 92.3 fl (80-96); MEAN PLT VOLUME 8.1 fl (7.5-11.1); MONO % 8.4 % (3.8-10.2); NEUT % 74.7 % (42.8-82.8); PLATELET COUNT 222 10^3/uL (134-434); RBC 5.24 M/mm3 (4.00-5.60); RDW 13.3 % (11.9-15.9); WHITE BLOOD COUNT 8.3 K/mm3 (4.0-10.0)
[2021-07-17] MEDS ORDERED: ACETAMINOPHEN 500 MG TABLET (FP) PO ONE (19:51)
[2021-07-17] MEDS ORDERED: KETOROLAC TROMETHAMINE 15 MG/ML VIAL IM ONE (19:51)
[2021-07-17 20:02] LABS: CALCIUM 9.5 mg/dL (8.5-10.1)
[2021-07-17] MEDS ORDERED: MAG HYDROX/AL HYDROX/SIMETH 30 ML UNIT-DOSE CUP PO ONE (20:02)
[2021-07-17 20:03] LABS: ALBUMIN 4.2 g/dl (3.4-5.0); BLOOD UREA NITROGEN 16.2 mg/dL (7-18)
[2021-07-17 20:06] LABS: CREATININE 1.3 mg/dL (0.55-1.3)
[2021-07-17 20:07] LABS: BILIRUBIN,TOTAL 0.9 mg/dL (0.2-1)
[2021-07-17 20:08] LABS: ACTIVATED PTT 40.4 SECONDS (25.2-36.5); INR 1.02 (0.83-1.09); PROTHROMBIN TIME (PATIENT) 11.7 SEC (9.7-13.0)
[2021-07-17] MEDS ORDERED: ACETAMINOPHEN 500 MG TABLET (FP) ONE (20:10)
[2021-07-17] MEDS ORDERED: MAG HYDROX/AL HYDROX/SIMETH 30 ML UNIT-DOSE CUP ONE (20:10)
[2021-07-17] MEDS ORDERED: KETOROLAC TROMETHAMINE 15 MG/ML VIAL ONE (20:10)
== END 2021-07-17 22:18 | disposition home or self-care (01) ==
LOC: JER 16:50
PROC: 3E0233Z Introduction of Anti-inflammatory into Muscle, Percutaneous Approach (ICD-10-PCS; principal; 2021-07-17)
DX: R00.2 Palpitations (principal)
CPT/HCPCS: 36415; 71046-TC-FY; 80053; 84484; 85025; 85610; 85730; 93005; 93010; 99285-25

== ENCOUNTER 2021-08-15 04:30 | Day surgery (SDC) | payer BC ==
[2021-08-10 13:34] VITALS: BMI 20.7
[2021-08-15] MEDS ORDERED: BUPIVACAINE HCL/PF 0.75% 10 ML VIAL PNB ONE ×2 (09:16→09:23)
[2021-08-15] MEDS ORDERED: IOHEXOL 180 MG/1 ML ML IJ ONE ×2 (09:16→09:23)
[2021-08-15] MEDS ORDERED: LIDOCAINE HCL 1% PRESERVATIVE FREE - 30ML VIAL INF ONE ×2 (09:17→09:23)
[2021-08-15] MEDS ORDERED: BUPIVACAINE HCL/PF 0.75% 10 ML VIAL ONE (09:19)
[2021-08-15] MEDS ORDERED: LIDOCAINE HCL/PF 1% SDV 5ML VIAL ONE (09:19)
[2021-08-15 10:08] VITALS: TEMP 97.7
[2021-08-15 10:48] VITALS: BP 137/75; PULSE 66
== END 2021-08-15 10:25 | disposition home or self-care (01) ==
LOC: JASU-SURG 04:30
PROVIDERS: ATTEND Pain Medicine Pain Medicine
PROC: BR16YZZ Fluoroscopy of Lumbar Facet Joint(s) using Other Contrast (ICD-10-PCS; 2021-08-15)
PROC: 3E0T3BZ Introduction of Anesthetic Agent into Peripheral Nerves and Plexi, Percutaneous Approach (ICD-10-PCS; principal; 2021-08-15 10:30)
DX: M47.816 Spondylosis without myelopathy or radiculopathy, lumbar region (principal)
CPT/HCPCS: 76000-TC-FY

== ENCOUNTER 2021-09-15 04:09 | Day surgery (SDC) | payer BC ==
[2021-09-11 19:14] VITALS: BMI 19.8
[2021-09-15] MEDS ORDERED: BUPIVACAINE HCL/PF 0.75% 10 ML VIAL ONE (07:20)
[2021-09-15] MEDS ORDERED: LIDOCAINE HCL/PF 1% SDV 5ML VIAL ONE (07:20)
[2021-09-15] MEDS ORDERED: BUPIVACAINE HCL/PF 0.75% 10 ML VIAL NR ONE (08:57)
[2021-09-15] MEDS ORDERED: IOHEXOL 180 MG/1 ML ML IJ ONE (08:58)
[2021-09-15] MEDS ORDERED: LIDOCAINE HCL 1% PRESERVATIVE FREE - 30ML VIAL IJ ONE (08:59)
[2021-09-15 09:54] VITALS: BP 153/83; PULSE 72; TEMP 98.7
== END 2021-09-15 10:00 | disposition home or self-care (01) ==
LOC: JASU-SURG 04:09
PROVIDERS: ATTEND Pain Medicine Pain Medicine
PROC: 3E0T33Z Introduction of Anti-inflammatory into Peripheral Nerves and Plexi, Percutaneous Approach (ICD-10-PCS; 2021-09-15)
PROC: 3E0T3BZ Introduction of Anesthetic Agent into Peripheral Nerves and Plexi, Percutaneous Approach (ICD-10-PCS; principal; 2021-09-15 08:15)
DX: M47.816 Spondylosis without myelopathy or radiculopathy, lumbar region (principal)
CPT/HCPCS: 76000-TC-FY

== ENCOUNTER 2021-10-10 04:47 | Day surgery (SDC) | payer BC ==
[2021-10-04 17:00] VITALS: BMI 19.8
[2021-10-10] MEDS ORDERED: BUPIVACAINE HCL/PF 0.75% 10 ML VIAL ONE (07:09)
[2021-10-10] MEDS ORDERED: LIDOCAINE HCL/PF 1% SDV 5ML VIAL ONE (07:09)
[2021-10-10] MEDS ORDERED: LIDOCAINE HCL/PF 2% SDV 5ML VIAL ONE (07:15)
[2021-10-10] MEDS ORDERED: DEXAMETHASONE SOD PHOSPHATE 10 MG/1 ML VIAL ONE (11:18)
[2021-10-10] MEDS ORDERED: LIDOCAINE HCL 1% PRESERVATIVE FREE - 30ML VIAL IJ ONE (12:13)
[2021-10-10] MEDS ORDERED: BUPIVACAINE HCL/PF 0.75% 10 ML VIAL NR ONE (12:17)
[2021-10-10] MEDS ORDERED: LIDOCAINE HCL/PF 2% SDV 5ML VIAL INF ONE (12:17)
[2021-10-10] MEDS ORDERED: DEXAMETHASONE SOD PHOSPHATE 10 MG/1 ML VIAL IM ONE (12:17)
[2021-10-10 13:23] VITALS: TEMP 98.1
[2021-10-10 14:01] VITALS: BP 144/80; PULSE 66
== END 2021-10-10 14:28 | disposition home or self-care (01) ==
LOC: JASU-SURG 04:47
PROVIDERS: ATTEND Pain Medicine Pain Medicine
PROC: 3E0T3TZ Introduction of Destructive Agent into Peripheral Nerves and Plexi, Percutaneous Approach (ICD-10-PCS; principal; 2021-10-10 10:15)
DX: M47.816 Spondylosis without myelopathy or radiculopathy, lumbar region (principal)
CPT/HCPCS: 76000-TC-FY; J1100

== ENCOUNTER 2022-06-28 10:39 | Emergency (ER) | payer BC ==
[2022-06-28 10:48] VITALS: BP 143/69; PULSE 50; RESP 16; TEMP 98.6; BMI 22.8
[2022-06-28] MEDS ORDERED: IBUPROFEN 600 MG TABLET (FP) PO ONE ×2 (11:49→11:57)
== END 2022-06-28 12:55 | disposition home or self-care (01) ==
LOC: JERFT 10:39
DX: R07.82 Intercostal pain (principal)
CPT/HCPCS: 71046-TC-FY; 71101-TC-LT-FY; 99284-25

== ENCOUNTER 2022-12-21 05:03 | Day surgery (SDC) | payer BC ==
[2022-12-19 15:42] VITALS: BMI 22.7
[2022-12-21 12:38] VITALS: TEMP 97.1
[2022-12-21 13:10] VITALS: BP 130/85; PULSE 71; RESP 20
== END 2022-12-21 13:55 | disposition home or self-care (01) ==
LOC: JASU-ENDO 05:03
PROVIDERS: ATTEND Internal Medicine Gastroenterology
PROC: 0DB98ZX Excision of Duodenum, Via Natural or Artificial Opening Endoscopic, Diagnostic (ICD-10-PCS; 2022-12-21)
PROC: 0DB78ZX Excision of Stomach, Pylorus, Via Natural or Artificial Opening Endoscopic, Diagnostic (ICD-10-PCS; 2022-12-21)
PROC: 0DB28ZX Excision of Middle Esophagus, Via Natural or Artificial Opening Endoscopic, Diagnostic (ICD-10-PCS; 2022-12-21)
PROC: 0DB48ZX Excision of Esophagogastric Junction, Via Natural or Artificial Opening Endoscopic, Diagnostic (ICD-10-PCS; 2022-12-21)
PROC: 0DJD8ZZ Inspection of Lower Intestinal Tract, Via Natural or Artificial Opening Endoscopic (ICD-10-PCS; principal; 2022-12-21 11:30)
DX: Z12.11 Encounter for screening for malignant neoplasm of colon (principal); K57.30 Diverticulosis of large intestine without perforation or abscess without bleeding; K64.8 Other hemorrhoids; K29.50 Unspecified chronic gastritis without bleeding; K21.00 Gastro-esophageal reflux disease with esophagitis, without bleeding; K44.9 Diaphragmatic hernia without obstruction or gangrene; Z87.11 Personal history of peptic ulcer disease
CPT/HCPCS: 43239; G0121; 88305-TC; 88342-TC